=== PATIENT | female | born 1940 | race Caucasian/White ===

== ENCOUNTER 2020-06-09 16:04 | Emergency (ER) | payer MEDICARE, OTHER ==
[~2020-06-09] VITALS: Ht 154.9 cm; Wt 67.1 kg
[2020-06-09 16:12] VITALS: BP 191/71
--- NOTE | 2020-06-09 16:35 | ED Upper Extremity ---
General Chief Complaint: Trauma-Non Activation Stated Complaint: FALL Nursing Triage Note: head pain, lacerations Nursing Sepsis Screen: No Definite Risk Source: patient Exam Limitations: no limitations History of Present Illness Date Seen by Provider: Jun 09, 2020 Time Seen by Provider: 16:20 Initial Comments 79-year-old female presents after a fall with complaint of injury to her right hand, left forearm and swelling in the back of her head. Denies any significant pain, loss of consciousness, feeling of confusion or disorientation. Denies nausea vomiting or neck pain. Able to move all extremities without pain and denies any back pain. Allergies and Home Medications Allergies Coded Allergies: Penicillins (Verified Allergy, Unknown, 06/09/20) Patient Home Medication List Home Medication List Reviewed: Yes Review of Systems Constitutional: no symptoms reported; No chills, No dizziness, No fever, No malaise, No weakness EENTM: no symptoms reported Respiratory: No cough, No short of breath, No wheezing Cardiovascular: No chest pain, No edema, No syncope Gastrointestinal: No abdominal pain, No nausea, No vomiting Musculoskeletal: No back pain, No joint pain, No neck pain Skin: see HPI; No change in color, No rash; other (superficial wounds to RUE and LUE) Psychiatric/Neurological: Denies Headache, Denies Numbness, Denies Paresthesia Past Kkvdnxx-Gaphgu-Feiwjd Hx Past Med/Social Hx: Reviewed Nursing Past Med/Soc Hx Patient Social History Alcohol Use: Denies Use Recreational Drug Use: No Smoking Status: Never a Smoker 2nd Hand Smoke Exposure: No Recent Foreign Travel: No Contact w/Someone Who Travel: No Recent Infectious Disease Expo: No Recent Hopitalizations: No Physical Abuse: No Sexual Abuse: No Mistreated: No Fear: No Seasonal Allergies Seasonal Allergies: No Past Medical History Surgeries: Yes Gallbladder, Orthopedic Respiratory: No Cardiac: No Neurological: No Genitourinary: No Gastrointestinal: No Musculoskeletal: No Endocrine: Yes Diabetes, Non-Insulin dep HEENT: No Cancer: No Psychosocial: No Integumentary: No Physical Exam Vital Signs Vital Signs - First Documented 06/09/20 16:12 Temp 36.8 Pulse 100 Resp 16 B/P (MAP) 191/71 (111) Pulse Ox 96 O2 Delivery Room Air Capillary Refill : Less Than 3 Seconds Height, Weight, BMI Height: '" Weight: lbs. oz. kg; 27.00 BMI Method: General Appearance: WD/WN, no apparent distress HEENT: PERRL/EOMI, normal ENT inspection, other (left occiput- hematoma) Neck: non-tender, full range of motion, supple; No limited range of motion Cardiovascular: regular rate, rhythm, no JVD Respiratory: chest non-tender, lungs clear, normal breath sounds, no respir atory distress Gastrointestinal: non tender, soft Back: normal inspection, no CVA tenderness, no vertebral tenderness Shoulder: normal inspection, non-tender, no evidence of injury, normal ROM Elbow/Forearm: normal inspection, non-tender, no evidence of injury, normal ROM Wrist: Yes normal inspection, Yes non-tender, Yes no evidence of injury, Yes normal ROM Hand: normal inspection, non-tender, no evidence of injury, normal ROM, Bilateral, abrasions, laceration (superficial), soft tissue tenderness Neurologic/Tendon: normal sensation, normal motor functions, normal tendon functions 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, no motor/sensory deficits, alert, normal mood/affect, oriented x 3 Skin: normal color, warm/dry, other (soft tissue injuries as above) Progress/Results/Core Measures Results/Orders Vital Signs/I&O 06/09/20 16:12 Temp 36.8 Pulse 100 Resp 16 B/P (MAP) 191/71 (111) Pulse Ox 96 O2 Delivery Room Air Blood Pressure Mean: 111 Departure Impression Primary Impression: Fall from ground level Additional Impressions: Head contusion Qualified Codes: S00.93XA - Contusion of unspecified part of head, initial encounter Superficial laceration Disposition: 01 HOME, SELF-CARE Condition: Stable Departure-Patient Inst. Decision time for Depature: 16:34 Patient Instructions: Minor Head Injury (DC), Laceration Repair With Glue (DC), Taking Care of Cuts and Scrapes Add. Discharge Instructions: Follow up with your PCP for any wound infection or concerns. Follow up to the nearest ER for any confusion, worsening headache, repeated vomiting or severe dizziness All discharge instructions reviewed with patient and/or family. Voiced understanding. Scripts Bacitracin/Polymyxin B Sulfate (Polysporin Ointment) 28.3 Gm Oint...g. 28.3 GM TP BID, #1 TUBE Prov: DARLEEN KATHLEEN DO 06/09/20 DARLEEN KATHLEEN DO Jun 09, 2020 16:35
[2020-06-09] MEDS ORDERED: BACI28.35 TP (16:36)
[2020-06-09] MEDS ORDERED: TETANUS & DIPHTHERIA TOX,ADULT 0.5 ML (TENIVAC) IM ONE (16:45)
== END 2020-06-09 17:00 | disposition home or self-care (01) ==
LOC: ER FS 16:07
DX: S61.411A Laceration without foreign body of right hand, initial encounter (principal); S00.93XA Contusion of unspecified part of head, initial encounter; Z88.0 Allergy status to penicillin; Z23 Encounter for immunization; W18.30XA Fall on same level, unspecified, initial encounter
CPT/HCPCS: 90714; 99284

== ENCOUNTER 2022-07-22 14:55 | Emergency (ER) | payer MEDICARE, OTHER ==
[~2022-07-22] VITALS: Ht 154 cm; Wt 60.0 kg
[~2022-07-22 14:55] MED LIST: BACI28.35 TP
[2022-07-22] MEDS ORDERED: LIDOCAINE 1% INJ 20 ML VIAL INJ ONE (15:15)
[2022-07-22] MEDS ORDERED: TETANUS,DIPTH,PERTUSS P/F (BOOSTRIX) 0.5 ML VIAL IM ONE (15:15)
--- NOTE | 2022-07-22 15:26 | ED Fall/Injury ---
General Chief Complaint: Trauma-Non Activation Stated Complaint: FALL; HEAD INJ Nursing Triage Note: PT FELL AFTER MISSING A STEP. SEE TRIAGE NOTE. Source: patient, family History of Present Illness Date Seen by Provider: Jul 22, 2022 Time Seen by Provider: 14:56 Initial Comments 81-year-old female presenting from home by private vehicle with complaints of scalp laceration and left hip pain. She had missed a step in her garage and fell. She denies losing consciousness. She was unsure of her last tetanus booster. She denies having change in vision, nausea, vomiting, chest pain, abdominal pain. she feels like there is an abrasion to her left elbow and has pain to the left hip. Denies being dizzy or light headed and felt fine before she fell. Location Injury Occurred: HOME Occurred: just prior to arrival Severity: moderate Injuries/Pain Location: head (occipital scalp laceration/hematoma), upper extremity (left elbow), lower extremity (left hip) Context: other (missed a step and fell onto concrete) Loss of Consciousness: no loss of consciousness Modifying Factors: Worse With Movement Associated Symptoms (Fall): No Abdominal Pain, No Chest Pain, No Confusion, No Dizziness; Headache (where she has the cut); No Lightheadedness, No Muscle Spasms, No Nausea/Vomiting, No Neck Pain, No Ringing in Ears, No Seizures, No Shortness of Air, No Slurred Speech, No Vision Changes Allergies and Home Medications Allergies Coded Allergies: Penicillins (Verified Allergy, Unknown, 06/09/20) Patient Home Medication List Home Medication List Reviewed: Yes Bacitracin/Polymyxin B Sulfate (Polysporin Ointment) 28.3 Gm Oint...g., 28.3 GM TP BID Prescribed by: DARLEEN KATHLEEN on 06/09/20 7439 Review of Systems Review of Systems Constitutional: No chills, No dizziness, No fever Eyes: Denies Blurred Vision, Denies Photophobia, Denies Vision Changes Ears, Nose, Mouth, Throat: denies ear pain, denies ear discharge, denies nose pain, denies nose discharge, denies epistaxis Respiratory: No cough Cardiovascular: No chest pain Gastrointestinal: No nausea, No vomiting Genitourinary: No dysuria Musculoskeletal: see HPI Skin: see HPI Psychiatric/Neurological: See HPI Past Xwxpdrz-Azgpoj-Lgraot Hx Patient Social History Tobacco Use?: No Use of E-Cig and/or Vaping dev: No Substance use?: No Alcohol Use?: No Pt feels they are or have been: No Immunizations Up To Date First/Initial COVID19 Vaccinat: 2020 Second COVID19 Vaccination Yordan: 2020 Seasonal Allergies Seasonal Allergies: No Past Medical History Surgeries: Yes Gallbladder, Orthopedic Respiratory: No Cardiac: No Neurological: No Genitourinary: No Gastrointestinal: No Musculoskeletal: No Endocrine: Yes Diabetes, Non-Insulin dep HEENT: No Cancer: No Psychosocial: No Integumentary: No Physical Exam Vital Signs Vital Signs - First Documented 07/22/22 15:14 Temp 36.2 Pulse 103 Resp 18 B/P (MAP) 152/74 (100) Pulse Ox 98 O2 Delivery Room Air Capillary Refill : Less Than 3 Seconds Height, Weight, BMI Height: '" Weight: lbs. oz. kg; 25.00 BMI Method: General Appearance: WD/WN, mild distress HEENT: PERRL/EOMI, TMs normal, pharynx normal; No photophobia; other (Negative terry sign, negative raccoon sign, negative CSF otorrhea, negative CSF rhinorrhea, no hemotympanum) Neck: non-tender, full range of motion, supple, normal inspection Cardiovascular: normal peripheral pulses, regular rate, rhythm Respiratory: chest non-tender, lungs clear, normal breath sounds Gastrointestinal: normal bowel sounds, non tender, soft, no pulsatile mass Back: no CVA tenderness, no vertebral tenderness Extremities: normal range of motion, normal capillary refill, other (Complains of tenderness to the palpation and movement of the left hip as well as left elbow. 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, alert, oriented x 3 Skin: warm/dry, other (Scalp laceration on the occipital area with hematoma.) Gala Coma Score Best Eye Response: (4) Open Spontaneously Best Verbal Response: (5) Oriented Best Motor Response: (6) Obeys Commands Gala Total: 15 Procedures/Interventions Wound Location: Scalp Wound Length (cm): 7.8 Wound's Depth, Shape: irregular, stellate, contused tissue, sub Q Wound Explored: clean Irrigated w/ Saline (ccs): 500 Anesthesia: 1% Lidocaine Staple Repair: Stapler 35W Number of Sutures: 11 Progress After obtaining verbal consent from the patient the wound was cleaned with chlorhexidine scrub soap and sterile water. It was flushed and irrigated with over 500 mL of irrigation. Then using 2% lidocaine with epinephrine the wound was anesthetized with 6 mL of medication. Using a skin stapler a total of 11 marco antonio were placed to help approximate the wound edges. Patient tolerated procedure well without any immediate complication. Counseled on follow-up and return precautions . Advised to have marco antonio out in 7 to 10 days. Progress/Results/Core Measures Results/Orders My Orders Orders - ERNESTO CASTANEDA MD Lidocaine 1% Inj 20 Ml (Xylocaine 1% Inj (07/22/22 15:15) Dipht,Pertuss(Acell),Tet Adult (Boostrix (07/22/22 15:15) Ct Head/Cervical Spine Wo (07/22/22 15:09) Pelvis With Left Hip 2-3 View (07/22/22 15:09) Medications Given in ED Current Medications Medications Dose Ordered Sig/Jonelle Route Start Time Stop Time Status Last Admin Dose Admin Diphtheria/ Tetanus/Acell Pertussis 0.5 ml ONCE ONCE IM 07/22/22 15:15 07/22/22 15:16 DC 07/22/22 16:18 0.5 ML Lidocaine HCl 20 ml ONCE ONCE INJ 07/22/22 15:15 07/22/22 15:16 DC 07/22/22 15:00 20 ML Vital Signs/I&O 07/22/22 07/22/22 15:14 16:54 Temp 36.2 36.2 Pulse 103 94 Resp 18 18 B/P (MAP) 152/74 (100) 152/74 Pulse Ox 98 98 O2 Delivery Room Air Room Air Blood Pressure Mean: 100 Progress Progress Note #1: Progress Note The scalp wound was cleaned with chlorhexidine scrub soap and sterile water. It was irrigated and flushed. Then using 2% lidocaine with epinephrine the wound was anesthetized with 6 mL of medicine. Total of 11 marco antonio were placed to approximate the scalp wound edges. Patient tolerated procedure well without any immediate complications. Since she was unsure of her last tetanus a tetanus booster was administered. After the marco antonio were placed patient was sent to radiology for CT scan of the head and cervical spine and then plain films of the pelvis and left hip. Consider doing x-rays of the left elbow but since she had full range of motion no obvious bruising or deformity and no crepitus will defer imaging of the elbow. Head was elevated and ice pack applied to help with swelling and bleeding. Potential life-threatening diagnosis of intracranial hemorrhage, skull fracture, cervical spine fracture, pelvis fracture, hip fracture. Patient declined pain medicine. She states that she has not had any improvement in the past with getting Tylenol so she did not want to take it. Progress Note #2: Progress Note On my personal interpretation and review of her CT scan of head and cervical spine without contrast and plain films of pelvis and left hip she has no acute intracranial hemorrhage, skull fracture, cervical spine fracture. she has inferior and superior pubic ramus fracture to the left side. No hip fracture. Progress Note #3: Time: 16:24 Progress Note I called and discussed the case with the orthopedic doctor on-call, Dr. Baker. He reviewed the x-rays of the pelvis and hip and advised that management would be similar to just the pubic ramus fracture. She should use a walker and weight-bear as tolerated for the left pubic ramus fracture. Follow up with him in clinic for continued evaluation of the pubic ramus fracture. Keep scalp laceration clean and dry for 24 hours then wash with shampoo and water. Marco Antonio out in 7 to 10 days. Be seen sooner if having concerns for infection or problems. Take over the counter acetaminophen and/or ibuprofen to help with pubic ramus fracture pain as well as the scalp pain. Try to keep head elevated 30 to 45 degrees to limit swelling and bleeding. Apply ice 20 to 30 minutes every few hours as needed to help with swelling and bleeding. Use walker for weightbearing as tolerated. Diagnostic Imaging Diagonstic Imaging: Xray Plain Films/CT/US/NM/MRI: pelvis, hip Comments [facility], [place] NAME: NEGRA GUERRA [facility] REC#: [id number] PT STATUS: REG ER : 1940 PHYSICIAN: ERNESTO CASTANEDA MD ADMIT DATE: 07/22/22/ER FS Signed Date of Exam:07/22/22 PELVIS WITH LEFT HIP 2-3 VIEW INDICATION: Fall at home, pain. FINDINGS: AP pelvis and two-view left hip performed. There are fractures of the left superior and inferior pubic rami. The left superior fracture appears to involve the anterior acetabular column without significant displacement. There is underlying bony demineralization. No symphyseal or SI joint diastasis. There are arthritic changes to the bilateral hips. The bilateral femoral heads, necks, trochanters, and visualized subtrochanteric shafts are intact. IMPRESSION: Left superior and inferior pubic rami fractures extend into at least the anterior column of the acetabulum. Proximal femurs are arthritic but nonacute. Dictated by: Dictated on workstation # [id number] Dict: 07/22/22 1558 Trans: 07/22/228 [id number] Interpreted by: MARIANA COLLIER Electronically signed by: MARIANA COLLIER 07/22/22 1658 Reviewed: Reviewed by Mn Diagonstic Imaging: CT Plain Films/CT/US/NM/MRI: c-spine, head Comments [facility], [place] NAME: NEGRA GUERRA [facility] REC#: [id number] PT STATUS: REG ER : 1940 PHYSICIAN: ERNESTO CASTANEDA MD ADMIT DATE: 07/22/22/ER FS Signed Date of Exam:07/22/22 CT HEAD/CERVICAL SPINE WO PROCEDURE: CT head and CT cervical spine without contrast. TECHNIQUE: Multiple contiguous axial images were obtained through the brain and cervical spine without the use of intravenous contrast. Sagittal and coronal reformations through the cervical spine were then performed. Auto Exposure Controls were utilized during the CT exam to meet ALARA standards for radiation dose reduction. INDICATION: Fall, lacerations. FINDINGS: CT HEAD: Soft tissue injury and scalp repair posteriorly on the left noted. The underlying calvarium appeared intact. There was no hemorrhage. No acute or abnormal extra-axial fluid collections. No focal or generalized cerebral edema. No findings of an elevation of the intracranial pressures. No skull fracture. No hemo-sinus. No pneumocephalus. CERVICAL SPINE: Cervical stature is normal. The alignment is within normal limits. No spinal fracture or paravertebral hemorrhage. There are carotid atherosclerotic vascular calcifications. There are degenerative changes to the discs, endplates, and facets throughout the cervical spine. No acute injury or malalignment. No facet dislocation. Some ossification of the spinal laminar ligaments, chronic. Carotid and vertebral atherosclerotic vascular calcifications, chronic. IMPRESSION: CT head: Scalp injury and repair with no skull fracture, hemorrhage, or acute intracerebral pathology. C-spine: Chronic degenerative changes without fracture or traumatic malalignment. Dictated by: Dictated on workstation # [id number] Dict: 07/22/22 1600 Trans: 07/22/221656 AS6 [id number] Interpreted by: MARIANA COLLIER Electronically signed by: MARIANA COLLIER 07/22/221656 Reviewed: Reviewed by Me Departure Impression Primary Impression: Closed fracture of left inferior pubic ramus Qualified Codes: S32.592A - Other specified fracture of left pubis, initial encounter for closed fracture Additional Impressions: Closed fracture of left superior pubic ramus Qualified Codes: S32.512A - Fracture of superior rim of left pubis, initial encounter for closed fracture Laceration of scalp without foreign body Qualified Codes: S01.01XA - Laceration without foreign body of scalp, initial encounter Fall at home Qualified Codes: W19.XXXA - Unspecified fall, initial encounter; Y92.009 - Unspecified place in unspecified non-institutional (private) residence as the place of occurrence of the external cause Disposition: 01 HOME, SELF-CARE Condition: Stable Departure-Patient Inst. Decision time for Depature: 16:42 Referrals: WILL AZUL MD (PCP) Primary Care Physician JENNIE BAKER MD Patient Instructions: Laceration Repair With [facility], Pelvic Fracture, Preventing Falls ED Add. Discharge Instructions: The marco antonio should be removed in 7 to 10 days and you could return to the ED to have them removed. Try applying an ice pack for 20-30 minutes every few hours to the scalp wound. This will help with the swelling and bleeding. Try to keep the wound clean and dry for the first 24 hours and then you could wash her hair like normal. Consider taking acetaminophen or ibuprofen to help with pain. Use a walker for help with your walking. Bear weight on left leg as you tolerate it using the walker to help keep you from bearing full weight on the left leg. The fractures of the Inferior and Superior Pubic Ramus on your left side will cause pain, especially with walking or bearing weight. Call Dr. Baker to get a follow up appointment in the next 1-2 weeks about the pubic ramus fractures. These will heal on their own but can cause pain until it is healed. Try to keep the head elevated 30 to 45 degrees to help limit swelling and bleeding. The swelling to the scalp is from a hematoma or blood collection under the skin. This will go down over time but may also spread into the neck area. All discharge instructions reviewed with patient and/or family. Voiced understanding. Images Head/Face 1 - Laceration (stellate laceration with hematoma) ERNESTO CASTANEDA MD Jul 22, 2022 15:26
--- NOTE | 2022-07-22 16:02 | Diagnostic Imaging Report ---
INDICATION: Fall at home, pain. FINDINGS: AP pelvis and two-view left hip performed. There are fractures of the left superior and inferior pubic rami. The left superior fracture appears to involve the anterior acetabular column without significant displacement. There is underlying bony demineralization. No symphyseal or SI joint diastasis. There are arthritic changes to the bilateral hips. The bilateral femoral heads, necks, trochanters, and visualized subtrochanteric shafts are intact. IMPRESSION: Left superior and inferior pubic rami fractures extend into at least the anterior column of the acetabulum. Proximal femurs are arthritic but nonacute. Dictated by: Dictated on workstation # [id number]
--- NOTE | 2022-07-22 16:07 | Diagnostic Imaging Report ---
PROCEDURE: CT head and CT cervical spine without contrast. TECHNIQUE: Multiple contiguous axial images were obtained through the brain and cervical spine without the use of intravenous contrast. Sagittal and coronal reformations through the cervical spine were then performed. Auto Exposure Controls were utilized during the CT exam to meet ALARA standards for radiation dose reduction. INDICATION: Fall, lacerations. FINDINGS: CT HEAD: Soft tissue injury and scalp repair posteriorly on the left noted. The underlying calvarium appeared intact. There was no hemorrhage. No acute or abnormal extra-axial fluid collections. No focal or generalized cerebral edema. No findings of an elevation of the intracranial pressures. No skull fracture. No hemo-sinus. No pneumocephalus. CERVICAL SPINE: Cervical stature is normal. The alignment is within normal limits. No spinal fracture or paravertebral hemorrhage. There are carotid atherosclerotic vascular calcifications. There are degenerative changes to the discs, endplates, and facets throughout the cervical spine. No acute injury or malalignment. No facet dislocation. Some ossification of the spinal laminar ligaments, chronic. Carotid and vertebral atherosclerotic vascular calcifications, chronic. IMPRESSION: CT head: Scalp injury and repair with no skull fracture, hemorrhage, or acute intracerebral pathology. C-spine: Chronic degenerative changes without fracture or traumatic malalignment. Dictated by: Dictated on workstation # [id number]
[2022-07-22 16:54] VITALS: BP 152/74
== END 2022-07-22 17:17 | disposition home or self-care (01) ==
LOC: EDUNIT# 14:55 → ER FS 14:56
DX: S32.592A Other specified fracture of left pubis, initial encounter for closed fracture (principal); S01.01XA Laceration without foreign body of scalp, initial encounter; Z23 Encounter for immunization; R40.2362 Coma scale, best motor response, obeys commands, at arrival to emergency department; R40.2142 Coma scale, eyes open, spontaneous, at arrival to emergency department; R40.2252 Coma scale, best verbal response, oriented, at arrival to emergency department; W10.9XXA Fall (on) (from) unspecified stairs and steps, initial encounter; Y92.009 Unspecified place in unspecified non-institutional (private) residence as the place of occurrence of the external cause
CPT/HCPCS: 12032; 70450; 72125; 73502; 90715

== ENCOUNTER → 2022-08-04 | Outpatient (CLI) | payer MEDICARE, OTHER ==
--- NOTE | 2022-08-04 12:44 | Diagnostic Imaging Report ---
INDICATION: Left pubic fracture follow-up. AP pelvis dated 9:02 a.m. and compared with 07/22/2022. FINDINGS: Fractures of the left inferior and superior pubic rami appear in unchanged alignment compared to the previous study. There is no new bony abnormality seen elsewhere. There are vascular calcifications noted. There are moderate degenerative changes of both hips. IMPRESSION: Stable alignment of left inferior and superior pubic rami fractures compared to the prior study. Dictated by: Dictated on workstation # [id number]
== END ==
LOC: RAD FS 08:39
PROVIDERS: ATTEND Nurse Practitioner
DX: S32.592D Other specified fracture of left pubis, subsequent encounter for fracture with routine healing (principal); S32.512D Fracture of superior rim of left pubis, subsequent encounter for fracture with routine healing; X58.XXXD Exposure to other specified factors, subsequent encounter
CPT/HCPCS: 72170